=== PATIENT | male | born 1980 | race Caucasian/White ===

== ENCOUNTER 2017-05-13 08:50 | Outpatient (CLI) | payer MEDICAID ==
[~2017-05-13 08:50] MED LIST: LEVOTHYROXINE PO
== END 2017-05-13 09:33 | disposition home or self-care (01) ==
LOC: WOUND CARE 08:50 → EDSTATUS 09:00 → WOUND CARE 09:33
PROVIDERS: ATTEND Surgery
DX: T81.31XD Disruption of external operation (surgical) wound, not elsewhere classified, subsequent encounter (principal); L98.491 Non-pressure chronic ulcer of skin of other sites limited to breakdown of skin; E66.9 Obesity, unspecified; E03.9 Hypothyroidism, unspecified; F17.200 Nicotine dependence, unspecified, uncomplicated; Z72.89 Other problems related to lifestyle; Y83.8 Other surgical procedures as the cause of abnormal reaction of the patient, or of later complication, without mention of misadventure at the time of the procedure
CPT/HCPCS: 99215; A6021; A6196; A6206; A6212; A6266

== ENCOUNTER 2017-05-18 08:52 | Outpatient (CLI) | payer MEDICAID | END 2017-05-18 09:55 | disposition home or self-care (01) | LOC: WOUND CARE 08:52 → EDSTATUS 09:00 → WOUND CARE 09:55 | PROVIDERS: ATTEND Surgery | DX: T81.31XD Disruption of external operation (surgical) wound, not elsewhere classified, subsequent encounter (principal); L98.491 Non-pressure chronic ulcer of skin of other sites limited to breakdown of skin; E03.9 Hypothyroidism, unspecified; E66.9 Obesity, unspecified; F17.200 Nicotine dependence, unspecified, uncomplicated; Z72.89 Other problems related to lifestyle; Z89.9 Acquired absence of limb, unspecified; Y83.8 Other surgical procedures as the cause of abnormal reaction of the patient, or of later complication, without mention of misadventure at the time of the procedure | CPT/HCPCS: 99211; A6021; A6196; A6212; A6266 ==

== ENCOUNTER 2017-05-20 08:49 | Outpatient (CLI) | payer MEDICAID | END 2017-05-20 09:19 | disposition home or self-care (01) | LOC: WOUND CARE 08:49 → EDSTATUS 09:00 → WOUND CARE 09:19 | PROVIDERS: ATTEND Surgery | DX: T81.31XD Disruption of external operation (surgical) wound, not elsewhere classified, subsequent encounter (principal); L98.491 Non-pressure chronic ulcer of skin of other sites limited to breakdown of skin; E03.9 Hypothyroidism, unspecified; E66.9 Obesity, unspecified; F17.200 Nicotine dependence, unspecified, uncomplicated; Z72.89 Other problems related to lifestyle; Z89.9 Acquired absence of limb, unspecified; Y83.8 Other surgical procedures as the cause of abnormal reaction of the patient, or of later complication, without mention of misadventure at the time of the procedure | CPT/HCPCS: 99211; A6021; A6196; A6212; A6266 ==

== ENCOUNTER 2017-05-24 08:50 | Outpatient (CLI) | payer MEDICAID ==
[2017-05-24] MEDS ORDERED: LIDOcaine 2% 5ml jelly ONE (09:49)
== END 2017-05-24 10:17 | disposition home or self-care (01) ==
LOC: WOUND CARE 08:50 → EDSTATUS 09:00 → WOUND CARE 10:17
PROVIDERS: ATTEND Surgery
DX: T81.31XD Disruption of external operation (surgical) wound, not elsewhere classified, subsequent encounter (principal); L98.491 Non-pressure chronic ulcer of skin of other sites limited to breakdown of skin; E03.9 Hypothyroidism, unspecified; E66.9 Obesity, unspecified; F17.200 Nicotine dependence, unspecified, uncomplicated; Z72.89 Other problems related to lifestyle; Z89.9 Acquired absence of limb, unspecified; Y83.8 Other surgical procedures as the cause of abnormal reaction of the patient, or of later complication, without mention of misadventure at the time of the procedure
CPT/HCPCS: 99215; A6021; A6212

== ENCOUNTER 2017-05-27 08:49 | Day surgery (SDC) | payer MEDICAID | END 2017-05-27 09:53 | disposition home or self-care (01) | LOC: WOUND CARE 08:49 | PROVIDERS: ATTEND Surgery | DX: T81.89XD Other complications of procedures, not elsewhere classified, subsequent encounter (principal); E03.9 Hypothyroidism, unspecified; E66.9 Obesity, unspecified; F17.200 Nicotine dependence, unspecified, uncomplicated; Z72.89 Other problems related to lifestyle; Z89.9 Acquired absence of limb, unspecified; Y83.8 Other surgical procedures as the cause of abnormal reaction of the patient, or of later complication, without mention of misadventure at the time of the procedure | CPT/HCPCS: 99214; A6021; A6212 ==

== ENCOUNTER 2017-06-03 08:55 | Day surgery (SDC) | payer MEDICAID ==
[2017-06-03] MEDS ORDERED: LIDOcaine 2% 5ml jelly ONE (09:54)
== END 2017-06-03 10:23 | disposition home or self-care (01) ==
LOC: WOUND CARE 08:55
PROVIDERS: ATTEND Surgery
DX: T81.31XD Disruption of external operation (surgical) wound, not elsewhere classified, subsequent encounter (principal); L98.491 Non-pressure chronic ulcer of skin of other sites limited to breakdown of skin; E03.9 Hypothyroidism, unspecified; E66.9 Obesity, unspecified; F17.200 Nicotine dependence, unspecified, uncomplicated; Z89.9 Acquired absence of limb, unspecified; Z72.89 Other problems related to lifestyle; Y83.8 Other surgical procedures as the cause of abnormal reaction of the patient, or of later complication, without mention of misadventure at the time of the procedure
CPT/HCPCS: 17250; A6021; A6212

== ENCOUNTER 2017-06-10 08:40 | Day surgery (SDC) | payer MEDICAID ==
[2017-06-10] MEDS ORDERED: LIDOcaine 2% 5ml jelly ONE (09:31)
== END 2017-06-10 10:04 | disposition home or self-care (01) ==
LOC: WOUND CARE 08:40
PROVIDERS: ATTEND Surgery
DX: T81.31XD Disruption of external operation (surgical) wound, not elsewhere classified, subsequent encounter (principal); L98.491 Non-pressure chronic ulcer of skin of other sites limited to breakdown of skin; E03.9 Hypothyroidism, unspecified; E66.9 Obesity, unspecified; F17.200 Nicotine dependence, unspecified, uncomplicated; Z89.9 Acquired absence of limb, unspecified; Z72.89 Other problems related to lifestyle; Y83.8 Other surgical procedures as the cause of abnormal reaction of the patient, or of later complication, without mention of misadventure at the time of the procedure
CPT/HCPCS: 97597; A6021; A6212

== ENCOUNTER 2017-06-17 09:22 | Outpatient (CLI) | payer MEDICAID ==
[2017-06-17] MEDS ORDERED: LIDOcaine 2% 5ml jelly ONE (09:42)
== END 2017-06-17 10:27 | disposition home or self-care (01) ==
LOC: WOUND CARE 09:22
PROVIDERS: ATTEND Surgery
DX: T81.31XD Disruption of external operation (surgical) wound, not elsewhere classified, subsequent encounter (principal); L98.491 Non-pressure chronic ulcer of skin of other sites limited to breakdown of skin; E03.9 Hypothyroidism, unspecified; E66.9 Obesity, unspecified; F17.200 Nicotine dependence, unspecified, uncomplicated; Z89.9 Acquired absence of limb, unspecified; Z72.89 Other problems related to lifestyle; Y83.8 Other surgical procedures as the cause of abnormal reaction of the patient, or of later complication, without mention of misadventure at the time of the procedure
CPT/HCPCS: 97597; A6021; A6212

== ENCOUNTER 2017-06-24 08:38 | Day surgery (SDC) | payer MEDICAID ==
[2017-06-24] MEDS ORDERED: LIDOcaine 2% 5ml jelly ONE (09:50)
== END 2017-06-24 10:05 | disposition home or self-care (01) ==
LOC: WOUND CARE 08:38
PROVIDERS: ATTEND Surgery
DX: T81.31XD Disruption of external operation (surgical) wound, not elsewhere classified, subsequent encounter (principal); L98.491 Non-pressure chronic ulcer of skin of other sites limited to breakdown of skin; E03.9 Hypothyroidism, unspecified; E66.9 Obesity, unspecified; F17.200 Nicotine dependence, unspecified, uncomplicated; Z89.9 Acquired absence of limb, unspecified; Z72.89 Other problems related to lifestyle; Y83.8 Other surgical procedures as the cause of abnormal reaction of the patient, or of later complication, without mention of misadventure at the time of the procedure
CPT/HCPCS: 17250; A6206; A6212

== ENCOUNTER 2017-07-08 08:15 | Outpatient (CLI) | payer MEDICAID | END 2017-07-08 09:45 | disposition home or self-care (01) | LOC: WOUND CARE 08:15 → EDSTATUS 08:30 → WOUND CARE 09:45 | PROVIDERS: ATTEND Surgery | DX: T81.31XD Disruption of external operation (surgical) wound, not elsewhere classified, subsequent encounter (principal); L98.491 Non-pressure chronic ulcer of skin of other sites limited to breakdown of skin; E03.9 Hypothyroidism, unspecified; E66.9 Obesity, unspecified; F17.200 Nicotine dependence, unspecified, uncomplicated; Z89.9 Acquired absence of limb, unspecified; Z72.89 Other problems related to lifestyle; Y83.8 Other surgical procedures as the cause of abnormal reaction of the patient, or of later complication, without mention of misadventure at the time of the procedure | CPT/HCPCS: 99214 ==

== ENCOUNTER 2017-10-05 09:00 | Day surgery (SDC) | payer MEDICAID ==
[2017-10-05] MEDS ORDERED: LIDOcaine 2% 5ml jelly ONE (09:38)
[2017-10-05] MEDS ORDERED: LIDOcaine 1%/PF (10mg/ml) 5ml vial ONE (10:09)
== END 2017-10-05 10:30 | disposition home or self-care (01) ==
LOC: WOUND CARE 09:00
PROVIDERS: ATTEND Surgery
DX: T81.31XD Disruption of external operation (surgical) wound, not elsewhere classified, subsequent encounter (principal); L98.492 Non-pressure chronic ulcer of skin of other sites with fat layer exposed; L02.211 Cutaneous abscess of abdominal wall; E03.9 Hypothyroidism, unspecified; E66.9 Obesity, unspecified; F17.200 Nicotine dependence, unspecified, uncomplicated; Z89.9 Acquired absence of limb, unspecified; Y83.8 Other surgical procedures as the cause of abnormal reaction of the patient, or of later complication, without mention of misadventure at the time of the procedure
CPT/HCPCS: 10061; 87070; 87075; 87076; 87102; J2001

== ENCOUNTER 2017-10-11 09:25 | Day surgery (SDC) | payer MEDICAID ==
[2017-10-11] MEDS ORDERED: LIDOcaine 2% 5ml jelly ONE (09:56)
[2017-10-11] MEDS ORDERED: CIPR-259 (15:23)
== END 2017-10-11 10:58 | disposition home or self-care (01) ==
LOC: WOUND CARE 09:25
PROVIDERS: ATTEND Surgery
DX: T81.31XD Disruption of external operation (surgical) wound, not elsewhere classified, subsequent encounter (principal); L98.492 Non-pressure chronic ulcer of skin of other sites with fat layer exposed; L02.211 Cutaneous abscess of abdominal wall; E03.9 Hypothyroidism, unspecified; E66.9 Obesity, unspecified; F17.200 Nicotine dependence, unspecified, uncomplicated; Z89.9 Acquired absence of limb, unspecified; Y83.8 Other surgical procedures as the cause of abnormal reaction of the patient, or of later complication, without mention of misadventure at the time of the procedure

== ENCOUNTER 2017-10-14 08:53 | Day surgery (SDC) | payer MEDICAID ==
[~2017-10-14 08:53] MED LIST changes: +CIPR-259
[2017-10-14] MEDS ORDERED: LIDOcaine 2% 5ml jelly ONE (09:19)
== END 2017-10-14 10:09 | disposition home or self-care (01) ==
LOC: WOUND CARE 08:53
PROVIDERS: ATTEND Surgery
DX: T81.89XD Other complications of procedures, not elsewhere classified, subsequent encounter (principal); L98.492 Non-pressure chronic ulcer of skin of other sites with fat layer exposed; L02.211 Cutaneous abscess of abdominal wall; E03.9 Hypothyroidism, unspecified; E66.9 Obesity, unspecified; F17.200 Nicotine dependence, unspecified, uncomplicated; Z89.9 Acquired absence of limb, unspecified; Y83.8 Other surgical procedures as the cause of abnormal reaction of the patient, or of later complication, without mention of misadventure at the time of the procedure
CPT/HCPCS: 11042; A6266

== ENCOUNTER 2017-10-18 08:52 | Day surgery (SDC) | payer MEDICAID ==
[2017-10-18] MEDS ORDERED: LIDOcaine 2% 5ml jelly ONE ×2 (09:28→09:47)
== END 2017-10-18 10:06 | disposition home or self-care (01) ==
LOC: WOUND CARE 08:52
PROVIDERS: ATTEND Surgery
DX: T81.89XD Other complications of procedures, not elsewhere classified, subsequent encounter (principal); L98.492 Non-pressure chronic ulcer of skin of other sites with fat layer exposed; L02.211 Cutaneous abscess of abdominal wall; E03.9 Hypothyroidism, unspecified; E66.9 Obesity, unspecified; F17.200 Nicotine dependence, unspecified, uncomplicated; Z89.9 Acquired absence of limb, unspecified; Y83.8 Other surgical procedures as the cause of abnormal reaction of the patient, or of later complication, without mention of misadventure at the time of the procedure
CPT/HCPCS: 97597; A6021

== ENCOUNTER 2017-10-25 08:55 | Day surgery (SDC) | payer MEDICAID ==
[2017-10-25] MEDS ORDERED: LIDOcaine 2% 5ml jelly ONE (09:46)
== END 2017-10-25 10:02 | disposition home or self-care (01) ==
LOC: WOUND CARE 08:55
PROVIDERS: ATTEND Surgery
DX: T81.4XXD Infection following a procedure, subsequent encounter (principal); L98.492 Non-pressure chronic ulcer of skin of other sites with fat layer exposed; L02.211 Cutaneous abscess of abdominal wall; E03.9 Hypothyroidism, unspecified; E66.9 Obesity, unspecified; F17.200 Nicotine dependence, unspecified, uncomplicated; Z89.9 Acquired absence of limb, unspecified; Y83.8 Other surgical procedures as the cause of abnormal reaction of the patient, or of later complication, without mention of misadventure at the time of the procedure
CPT/HCPCS: 11042; A6021

== ENCOUNTER 2017-11-01 08:40 | Day surgery (SDC) | payer MEDICAID ==
[2017-11-01] MEDS ORDERED: LIDOcaine 2% 5ml jelly ONE (09:04)
== END 2017-11-01 09:12 | disposition home or self-care (01) ==
LOC: WOUND CARE 08:40
PROVIDERS: ATTEND Surgery
DX: T81.4XXD Infection following a procedure, subsequent encounter (principal); L98.492 Non-pressure chronic ulcer of skin of other sites with fat layer exposed; L02.211 Cutaneous abscess of abdominal wall; E03.9 Hypothyroidism, unspecified; E66.9 Obesity, unspecified; F17.200 Nicotine dependence, unspecified, uncomplicated; Z89.9 Acquired absence of limb, unspecified; Y83.8 Other surgical procedures as the cause of abnormal reaction of the patient, or of later complication, without mention of misadventure at the time of the procedure
CPT/HCPCS: 97597; A6021; A6212

== ENCOUNTER 2017-11-11 08:47 | Day surgery (SDC) | payer MEDICAID ==
[2017-11-11] MEDS ORDERED: LIDOcaine 2% 5ml jelly ONE (09:42)
== END 2017-11-11 10:11 | disposition home or self-care (01) ==
LOC: WOUND CARE 08:47
PROVIDERS: ATTEND Surgery
DX: T81.4XXD Infection following a procedure, subsequent encounter (principal); L98.492 Non-pressure chronic ulcer of skin of other sites with fat layer exposed; L02.211 Cutaneous abscess of abdominal wall; E03.9 Hypothyroidism, unspecified; E66.9 Obesity, unspecified; F17.200 Nicotine dependence, unspecified, uncomplicated; Z89.9 Acquired absence of limb, unspecified; Y83.8 Other surgical procedures as the cause of abnormal reaction of the patient, or of later complication, without mention of misadventure at the time of the procedure
CPT/HCPCS: 17250; A6021; A6212

== ENCOUNTER 2017-11-25 08:41 | Day surgery (SDC) | payer MEDICAID ==
[~2017-11-25 08:41] MED LIST changes: -CIPR-259
[2017-11-25] MEDS ORDERED: LIDOcaine 2% 5ml jelly ONE (09:39)
== END 2017-11-25 09:56 | disposition home or self-care (01) ==
LOC: WOUND CARE 08:41
PROVIDERS: ATTEND Surgery
DX: T81.4XXD Infection following a procedure, subsequent encounter (principal); L98.492 Non-pressure chronic ulcer of skin of other sites with fat layer exposed; L02.211 Cutaneous abscess of abdominal wall; E03.9 Hypothyroidism, unspecified; E66.9 Obesity, unspecified; F17.200 Nicotine dependence, unspecified, uncomplicated; Z89.9 Acquired absence of limb, unspecified; Y83.8 Other surgical procedures as the cause of abnormal reaction of the patient, or of later complication, without mention of misadventure at the time of the procedure
CPT/HCPCS: 11042; A6021; A6212

== ENCOUNTER 2017-12-16 08:45 | Outpatient (CLI) | payer MEDICAID ==
[~2017-12-16] VITALS: Ht 193 cm; Wt 190.5 kg
[2017-12-16] MEDS: LIDOcaine 2% 5ml jelly ONE (09:51)
== END 2017-12-16 10:33 | disposition home or self-care (01) ==
LOC: WOUND CARE 08:45 → EDSTATUS 09:00 → WOUND CARE 10:33
PROVIDERS: ATTEND Surgery
DX: T81.89XD Other complications of procedures, not elsewhere classified, subsequent encounter (principal); L98.492 Non-pressure chronic ulcer of skin of other sites with fat layer exposed; L02.211 Cutaneous abscess of abdominal wall; E03.9 Hypothyroidism, unspecified; E66.9 Obesity, unspecified; F17.200 Nicotine dependence, unspecified, uncomplicated; Z89.9 Acquired absence of limb, unspecified; Y83.8 Other surgical procedures as the cause of abnormal reaction of the patient, or of later complication, without mention of misadventure at the time of the procedure
CPT/HCPCS: 99215; A6212

== ENCOUNTER 2018-01-06 08:50 | Day surgery (SDC) | payer MEDICAID ==
[2018-01-06] MEDS ORDERED: LIDOcaine 2% 5ml jelly ONE (10:00)
== END 2018-01-06 10:41 | disposition home or self-care (01) ==
LOC: WOUND CARE 08:50
PROVIDERS: ATTEND Surgery
DX: T81.4XXD Infection following a procedure, subsequent encounter (principal); L98.492 Non-pressure chronic ulcer of skin of other sites with fat layer exposed; L02.211 Cutaneous abscess of abdominal wall; E03.9 Hypothyroidism, unspecified; E66.9 Obesity, unspecified; F17.200 Nicotine dependence, unspecified, uncomplicated; Z89.9 Acquired absence of limb, unspecified; Y83.8 Other surgical procedures as the cause of abnormal reaction of the patient, or of later complication, without mention of misadventure at the time of the procedure
CPT/HCPCS: 97597; A6021; A6212

== ENCOUNTER 2018-01-27 08:44 | Day surgery (SDC) | payer MEDICAID ==
[2018-01-27] MEDS ORDERED: LIDOcaine/PRILOcaine 5gm cream TP ONE (09:46)
== END 2018-01-27 10:15 | disposition home or self-care (01) ==
LOC: WOUND CARE 08:44
PROVIDERS: ATTEND Surgery
DX: T81.4XXD Infection following a procedure, subsequent encounter (principal); L98.492 Non-pressure chronic ulcer of skin of other sites with fat layer exposed; L02.211 Cutaneous abscess of abdominal wall; E03.9 Hypothyroidism, unspecified; E66.9 Obesity, unspecified; F17.200 Nicotine dependence, unspecified, uncomplicated; Z89.9 Acquired absence of limb, unspecified; Y83.8 Other surgical procedures as the cause of abnormal reaction of the patient, or of later complication, without mention of misadventure at the time of the procedure
CPT/HCPCS: 97597; A6021; A6212

== ENCOUNTER 2018-02-17 07:51 | Outpatient (CLI) | payer MEDICAID ==
[~2018-02-17 07:51] MED LIST changes: -LEVOTHYROXINE PO; +NO HOME MEDS
[2018-02-17] MEDS ORDERED: LIDOcaine/PRILOcaine 5gm cream TP ONE (09:42)
[2018-02-17] MEDS ORDERED: HYDR-4353 PO (13:43)
== END 2018-02-17 10:25 | disposition home or self-care (01) ==
LOC: WOUND CARE 07:51 → EDSTATUS 08:00 → WOUND CARE 10:25
PROVIDERS: ATTEND Surgery
DX: T81.89XD Other complications of procedures, not elsewhere classified, subsequent encounter (principal); L98.492 Non-pressure chronic ulcer of skin of other sites with fat layer exposed; L02.211 Cutaneous abscess of abdominal wall; E03.9 Hypothyroidism, unspecified; E66.9 Obesity, unspecified; F17.200 Nicotine dependence, unspecified, uncomplicated; Z89.9 Acquired absence of limb, unspecified; Y83.8 Other surgical procedures as the cause of abnormal reaction of the patient, or of later complication, without mention of misadventure at the time of the procedure
CPT/HCPCS: 99215; A6266

== ENCOUNTER 2018-02-21 09:09 | Outpatient (CLI) | payer MEDICAID ==
[~2018-02-21 09:09] MED LIST changes: +HYDR-4353 PO; -NO HOME MEDS
== END 2018-02-21 10:27 | disposition home or self-care (01) ==
LOC: WOUND CARE 09:09 → EDSTATUS 09:30 → WOUND CARE 10:27
PROVIDERS: ATTEND Surgery
DX: T81.89XD Other complications of procedures, not elsewhere classified, subsequent encounter (principal); L98.492 Non-pressure chronic ulcer of skin of other sites with fat layer exposed; L02.211 Cutaneous abscess of abdominal wall; E03.9 Hypothyroidism, unspecified; E66.9 Obesity, unspecified; F17.200 Nicotine dependence, unspecified, uncomplicated; Z89.9 Acquired absence of limb, unspecified; Y83.8 Other surgical procedures as the cause of abnormal reaction of the patient, or of later complication, without mention of misadventure at the time of the procedure
CPT/HCPCS: 99215; A6266

== ENCOUNTER 2018-02-24 09:20 | Day surgery (SDC) | payer MEDICAID | END 2018-02-24 11:25 | disposition home or self-care (01) | LOC: WOUND CARE 09:20 | PROVIDERS: ATTEND Surgery | DX: T81.89XD Other complications of procedures, not elsewhere classified, subsequent encounter (principal); L98.492 Non-pressure chronic ulcer of skin of other sites with fat layer exposed; L02.211 Cutaneous abscess of abdominal wall; E03.9 Hypothyroidism, unspecified; E66.9 Obesity, unspecified; F17.200 Nicotine dependence, unspecified, uncomplicated; Z89.9 Acquired absence of limb, unspecified; Y83.8 Other surgical procedures as the cause of abnormal reaction of the patient, or of later complication, without mention of misadventure at the time of the procedure | CPT/HCPCS: 97597; A6266 ==

== ENCOUNTER 2018-02-27 09:14 | Day surgery (SDC) | payer MEDICAID | END 2018-02-27 10:56 | disposition home or self-care (01) | LOC: WOUND CARE 09:14 | PROVIDERS: ATTEND Surgery | DX: T81.89XD Other complications of procedures, not elsewhere classified, subsequent encounter (principal); L98.492 Non-pressure chronic ulcer of skin of other sites with fat layer exposed; L02.211 Cutaneous abscess of abdominal wall; E03.9 Hypothyroidism, unspecified; E66.9 Obesity, unspecified; F17.200 Nicotine dependence, unspecified, uncomplicated; Z89.9 Acquired absence of limb, unspecified; Y83.8 Other surgical procedures as the cause of abnormal reaction of the patient, or of later complication, without mention of misadventure at the time of the procedure | CPT/HCPCS: 87070; 87075; 87102; 97597; A6266; 87077; 87186 ==

== ENCOUNTER 2018-03-02 08:50 | Day surgery (SDC) | payer MEDICAID | END 2018-03-02 10:57 | disposition home or self-care (01) | LOC: WOUND CARE 08:50 | PROVIDERS: ATTEND Surgery | DX: T81.89XD Other complications of procedures, not elsewhere classified, subsequent encounter (principal); L98.492 Non-pressure chronic ulcer of skin of other sites with fat layer exposed; L02.211 Cutaneous abscess of abdominal wall; E03.9 Hypothyroidism, unspecified; E66.9 Obesity, unspecified; F17.200 Nicotine dependence, unspecified, uncomplicated; Z89.9 Acquired absence of limb, unspecified; Y83.8 Other surgical procedures as the cause of abnormal reaction of the patient, or of later complication, without mention of misadventure at the time of the procedure | CPT/HCPCS: 11042; A6266 ==

== ENCOUNTER 2018-03-06 08:53 | Day surgery (SDC) | payer MEDICAID ==
[2018-03-06] MEDS ORDERED: CLIN300C85 PO (13:37)
== END 2018-03-06 11:50 | disposition home or self-care (01) ==
LOC: WOUND CARE 08:53
PROVIDERS: ATTEND Surgery
DX: T81.89XD Other complications of procedures, not elsewhere classified, subsequent encounter (principal); L98.492 Non-pressure chronic ulcer of skin of other sites with fat layer exposed; L02.211 Cutaneous abscess of abdominal wall; E03.9 Hypothyroidism, unspecified; E66.9 Obesity, unspecified; F17.200 Nicotine dependence, unspecified, uncomplicated; Z89.9 Acquired absence of limb, unspecified; Y83.8 Other surgical procedures as the cause of abnormal reaction of the patient, or of later complication, without mention of misadventure at the time of the procedure
CPT/HCPCS: 11042; A6266

== ENCOUNTER 2018-03-10 08:54 | Day surgery (SDC) | payer MEDICAID ==
[~2018-03-10 08:54] MED LIST changes: +CLIN300C85 PO
== END 2018-03-10 09:58 | disposition home or self-care (01) ==
LOC: WOUND CARE 08:54
PROVIDERS: ATTEND Surgery
DX: T81.89XD Other complications of procedures, not elsewhere classified, subsequent encounter (principal); L98.492 Non-pressure chronic ulcer of skin of other sites with fat layer exposed; L02.211 Cutaneous abscess of abdominal wall; E03.9 Hypothyroidism, unspecified; E66.9 Obesity, unspecified; F17.200 Nicotine dependence, unspecified, uncomplicated; Z89.9 Acquired absence of limb, unspecified; Y83.8 Other surgical procedures as the cause of abnormal reaction of the patient, or of later complication, without mention of misadventure at the time of the procedure
CPT/HCPCS: 11042; A6266

== ENCOUNTER 2018-03-13 09:04 | Day surgery (SDC) | payer MEDICAID | END 2018-03-13 11:47 | disposition home or self-care (01) | LOC: WOUND CARE 09:04 | PROVIDERS: ATTEND Surgery | DX: T81.89XD Other complications of procedures, not elsewhere classified, subsequent encounter (principal); L98.492 Non-pressure chronic ulcer of skin of other sites with fat layer exposed; L02.211 Cutaneous abscess of abdominal wall; E03.9 Hypothyroidism, unspecified; E66.9 Obesity, unspecified; F17.200 Nicotine dependence, unspecified, uncomplicated; Z89.9 Acquired absence of limb, unspecified; Y83.8 Other surgical procedures as the cause of abnormal reaction of the patient, or of later complication, without mention of misadventure at the time of the procedure | CPT/HCPCS: 11042; A6266 ==

== ENCOUNTER 2018-03-16 08:55 | Outpatient (CLI) | payer MEDICAID | END 2018-03-16 09:25 | disposition home or self-care (01) | LOC: WOUND CARE 08:55 → EDSTATUS 09:00 → WOUND CARE 09:25 | PROVIDERS: ATTEND Surgery | DX: T81.89XD Other complications of procedures, not elsewhere classified, subsequent encounter (principal); L98.492 Non-pressure chronic ulcer of skin of other sites with fat layer exposed; L02.211 Cutaneous abscess of abdominal wall; E03.9 Hypothyroidism, unspecified; E66.9 Obesity, unspecified; F17.200 Nicotine dependence, unspecified, uncomplicated; Z89.9 Acquired absence of limb, unspecified; Y83.8 Other surgical procedures as the cause of abnormal reaction of the patient, or of later complication, without mention of misadventure at the time of the procedure | CPT/HCPCS: 99211; A6266 ==

== ENCOUNTER 2018-03-20 08:37 | Day surgery (SDC) | payer MEDICAID ==
[2018-03-20] MEDS ORDERED: LIDOcaine/PRILOcaine 5gm cream TP ONE (09:38)
== END 2018-03-20 10:46 | disposition home or self-care (01) ==
LOC: WOUND CARE 08:37
PROVIDERS: ATTEND Surgery
DX: T81.89XD Other complications of procedures, not elsewhere classified, subsequent encounter (principal); L98.492 Non-pressure chronic ulcer of skin of other sites with fat layer exposed; L02.211 Cutaneous abscess of abdominal wall; E03.9 Hypothyroidism, unspecified; E66.9 Obesity, unspecified; F17.200 Nicotine dependence, unspecified, uncomplicated; Z89.9 Acquired absence of limb, unspecified; Y83.8 Other surgical procedures as the cause of abnormal reaction of the patient, or of later complication, without mention of misadventure at the time of the procedure
CPT/HCPCS: 17250; A6021; A6212

== ENCOUNTER 2018-03-23 08:55 | Outpatient (CLI) | payer MEDICAID | END 2018-03-23 09:42 | disposition home or self-care (01) | LOC: WOUND CARE 08:55 → EDSTATUS 09:00 → WOUND CARE 09:42 | PROVIDERS: ATTEND Surgery | DX: T81.89XD Other complications of procedures, not elsewhere classified, subsequent encounter (principal); L98.492 Non-pressure chronic ulcer of skin of other sites with fat layer exposed; L02.211 Cutaneous abscess of abdominal wall; E03.9 Hypothyroidism, unspecified; E66.9 Obesity, unspecified; F17.200 Nicotine dependence, unspecified, uncomplicated; Z89.9 Acquired absence of limb, unspecified; Y83.8 Other surgical procedures as the cause of abnormal reaction of the patient, or of later complication, without mention of misadventure at the time of the procedure | CPT/HCPCS: 99211; A6021 ==

== ENCOUNTER 2018-03-30 08:48 | Day surgery (SDC) | payer MEDICAID ==
[~2018-03-30 08:48] MED LIST changes: -CLIN300C85 PO
[2018-03-30] MEDS ORDERED: LIDOcaine/PRILOcaine 5gm cream TP ONE (09:34)
[2018-03-30] MEDS ORDERED: NO HOME MEDS (15:56)
== END 2018-03-30 10:16 | disposition home or self-care (01) ==
LOC: WOUND CARE 08:48
PROVIDERS: ATTEND Surgery
DX: T81.89XD Other complications of procedures, not elsewhere classified, subsequent encounter (principal); L98.492 Non-pressure chronic ulcer of skin of other sites with fat layer exposed; L02.211 Cutaneous abscess of abdominal wall; E03.9 Hypothyroidism, unspecified; E66.9 Obesity, unspecified; F17.200 Nicotine dependence, unspecified, uncomplicated; Z89.9 Acquired absence of limb, unspecified; Y83.8 Other surgical procedures as the cause of abnormal reaction of the patient, or of later complication, without mention of misadventure at the time of the procedure
CPT/HCPCS: 17250; 97597; A6021

== ENCOUNTER 2018-04-13 09:04 | Day surgery (SDC) | payer MEDICAID ==
[~2018-04-13 09:04] MED LIST changes: -HYDR-4353 PO; +NO HOME MEDS
== END 2018-04-13 10:07 | disposition home or self-care (01) ==
LOC: WOUND CARE 09:04
PROVIDERS: ATTEND Surgery
DX: T81.89XD Other complications of procedures, not elsewhere classified, subsequent encounter (principal); L98.492 Non-pressure chronic ulcer of skin of other sites with fat layer exposed; L02.211 Cutaneous abscess of abdominal wall; E03.9 Hypothyroidism, unspecified; E66.9 Obesity, unspecified; F17.200 Nicotine dependence, unspecified, uncomplicated; Z89.9 Acquired absence of limb, unspecified; Y83.8 Other surgical procedures as the cause of abnormal reaction of the patient, or of later complication, without mention of misadventure at the time of the procedure
CPT/HCPCS: 17250; 97597; A6021; A6212

== ENCOUNTER 2018-04-20 09:21 | Day surgery (SDC) | payer MEDICAID | END 2018-04-20 10:24 | disposition home or self-care (01) | LOC: WOUND CARE 09:21 | PROVIDERS: ATTEND Surgery | DX: T81.89XD Other complications of procedures, not elsewhere classified, subsequent encounter (principal); L98.492 Non-pressure chronic ulcer of skin of other sites with fat layer exposed; L02.211 Cutaneous abscess of abdominal wall; E03.9 Hypothyroidism, unspecified; E66.9 Obesity, unspecified; F17.200 Nicotine dependence, unspecified, uncomplicated; Z89.9 Acquired absence of limb, unspecified; Y83.8 Other surgical procedures as the cause of abnormal reaction of the patient, or of later complication, without mention of misadventure at the time of the procedure | CPT/HCPCS: 17250; A6021; A6206; A6212 ==

== ENCOUNTER 2018-05-04 08:30 | Day surgery (SDC) | payer MEDICAID | END 2018-05-04 10:26 | disposition home or self-care (01) | LOC: WOUND CARE 08:30 | PROVIDERS: ATTEND Surgery | DX: T81.89XD Other complications of procedures, not elsewhere classified, subsequent encounter (principal); L98.492 Non-pressure chronic ulcer of skin of other sites with fat layer exposed; L02.211 Cutaneous abscess of abdominal wall; E03.9 Hypothyroidism, unspecified; E66.9 Obesity, unspecified; F17.200 Nicotine dependence, unspecified, uncomplicated; Z89.9 Acquired absence of limb, unspecified; Y83.8 Other surgical procedures as the cause of abnormal reaction of the patient, or of later complication, without mention of misadventure at the time of the procedure | CPT/HCPCS: 97597; A6021; A6212 ==

== ENCOUNTER 2018-05-25 08:20 | Outpatient (CLI) | payer MEDICAID ==
--- NOTE | 2018-05-25 10:30 | NUR ---
Patient ambulated independently from [facility] and was admitted to outpatient wound care for physician visit with Abdoulaye Crews MD. No dressing, no open area remaining to abdominal wound. Patient assessed for changes in conditions, medications and medical history. 1018 - Dr. Crews at bedside accompanied by RN. Wound assessed by and is declared healed. Plan of care discussed with patient. No dressing ordered or placed. Patient is discharged from the wound clinic to follow up on an as needed basis. Patient instructed on the signs and symptoms of infection and to call the Wound Center if any occur or to go to the ED if we are closed: Increased pain in wound Increase in drainage from the wound Redness in the skin surrounding the wound Bleeding from the wound Temperature of 101 or greater Patient instructed that the weight of their body puts a large amount of pressure on their wounds. This pressure keeps the new tissue from growing and inhibits new blood vessels from forming. Explained that, if they continue to bear weight on a body part that has a wound, the time it takes to heal the wound increases, the wound may get worse or the wound may not heal at all. Patient verbalized understanding of all discharge instructions and plan of care and ambulated independently out to [facility] in stable condition with no sign or symptom of distress at time of discharge.
== END 2018-05-25 10:23 | disposition home or self-care (01) ==
LOC: WOUND CARE 08:20 → EDSTATUS 08:30 → WOUND CARE 10:23
PROVIDERS: ATTEND Surgery
DX: T81.89XD Other complications of procedures, not elsewhere classified, subsequent encounter (principal); L98.492 Non-pressure chronic ulcer of skin of other sites with fat layer exposed; L02.211 Cutaneous abscess of abdominal wall; E03.9 Hypothyroidism, unspecified; E66.9 Obesity, unspecified; F17.200 Nicotine dependence, unspecified, uncomplicated; F10.10 Alcohol abuse, uncomplicated; Z89.9 Acquired absence of limb, unspecified; Y83.8 Other surgical procedures as the cause of abnormal reaction of the patient, or of later complication, without mention of misadventure at the time of the procedure
CPT/HCPCS: G0463